=== PATIENT | female | born 1955 | race Caucasian/White ===

== ENCOUNTER 2018-10-13 16:26 | Inpatient (IN) ==
--- NOTE | 2018-10-13 16:56 | Emergency Department Note ---
Disposition Clinical Impression: Low hemoglobin Disposition: Admitted As Inpatient Time of Disposition: 18:21 General Adult HPI - General Chief complaint: ED Recheck/Abnormal Lab/Rx Stated complaint: Needs Blood Transfusion Time Seen by Provider: 10/13/18 16:31 Source: patient Mode of arrival: ambulatory Limitations: no limitations Nursing Notes Reviewed: Yes Vital Signs Reviewed: Yes - History of Present Illness HPI Narrative: Patient is a 63-year-old female presenting with low hemoglobin. Patient has his tory of hypertension, diabetes and hyperlipidemia. Patient states that she has been having generalized fatigue for the past 5 months, progressive worse over the past few weeks, she was seen by her primary care provider today, had blood work performed and was called at home to go to the ER immediately for low hemoglobin. Patient denies fever, chills, melena, hematochezia or hematochezia. Patient states that she has had no other symptoms. She denies any abdominal pain, headache, trauma or fall, she denies history of GI bleed in the past. She denies any history of anemia, cancer or renal disease. Patient denies any history of anemia in the past. She denies chest pain, shortness of breath or leg pain. Patient does state that over the past week or so she has noticed some right lower extremity swelling into her ankle, without redness or pain. Patient denies any history of DVT, PE or blood clots in the past. She denies any recent surgery or malignancy. Pain Scale: 0 - Related Data Allergies Allergy/AdvReac Type Severity Reaction Status Date / Time sulfamethoxazole Allergy Swelling Verified 10/13/18 16:35 [From Bactrim] of Lip/Tongue/Throat trimethoprim [From Bactrim] Allergy Swelling Verified 10/13/18 16:35 of Lip/Tongue/Throat All systems ED: reviewed and negative except as stated. Review of Systems: As Per HPI Constitutional: Denies: fever, chills, weakness, weight change ENT ED: Denies: ear pain, throat pain, dental pain, hearing loss, epistaxis, congestion, dysphagia Cardiovascular: Denies: chest pain, palpitations, dyspnea on exertion, edema, syncope Respiratory: Denies: cough, dyspnea, wheezes, hemoptysis, stridor Gastrointestinal: Denies: abdominal pain, nausea, vomiting, diarrhea, cons tipation, hematemesis, melena, hematochezia Genitourinary: Denies: dysuria, frequency, hematuria, discharge Musculoskeletal: Denies: back pain, neck pain, arthralgia, myalgia Integumentary: Denies: rash, abrasion, lesions Neurological: Denies: headache, weakness, numbness, paresthesias, confusion, a bnormal gait, vertigo Psychiatric: Denies: anxiety, depression, suicidal thoughts, homicidal thoughts, auditory hallucinations, visual hallucinations Endocrine: Reports: fatigue Hematological/Lymphatic: Denies: easy bleeding, easy bruising Past Medical History - Past Medical History Attestation: Yes The following information was validated with the patient. Source: patient Medical history: Reports: diabetes, GERD, hypertension, thyroid disease Psychiatric history: Reports: no psych history - Social History Smoking Status: Never smoker Smokeless Tobacco Status: No Alcohol use: Reports: none Drug use: Reports: none Physical Exam - General Limitations: no limitations General appearance: alert, in no apparent distress - Head Head exam: atraumatic, normocephalic, normal inspection - Eye Eye exam: Present: normal appearance, PERRL, EOMI, other (Mild conjunctival pallor) - ENT ENT exam: normal exam, mucous membranes moist - Neck Neck exam: Present: normal inspection, full ROM, trachea midline - Chest Chest inspection: Present: normal inspection, symmetric chest wall rise - Respiratory Respiratory exam: Present: normal lung sounds bilaterally - Cardiovascular Cardiovascular exam: Present: regular rate, normal rhythm, normal heart sounds - Abdominal Exam Abdominal exam: Present: soft, Non-Tender. Absent: tenderness, distention, guarding, rebound, rigidity - Extremities Exam Extremities exam: Present: normal inspection, full ROM, normal capillary refill. Absent: tenderness, pedal edema - Expanded Lower Extremity Exam Neurovascular/Tendon exam: Absent: motor deficit, sensory deficit, tendon deficit - Back Exam Back exam: Present: normal inspection, full ROM. Absent: tenderness - Neurological Exam Neurological exam: Present: alert, oriented X3, CN II-XII intact - Psychiatric Psychiatric exam: Present: normal affect, normal mood - Skin Skin exam: Present: warm, dry, intact, normal color. Absent: rash Course Vital Signs Temperature 98.1 F 10/13/18 16:29 Pulse Rate 83 10/13/18 16:29 Respiratory Rate 14 10/13/18 16:29 Blood Pressure 158/84 10/13/18 16:29 O2 Sat by Pulse Oximetry 98 10/13/18 16:29 Temperature 99.3 F 10/13/18 18:27 Pulse Rate 84 10/13/18 18:27 Respiratory Rate 16 10/13/18 17:48 Blood Pressure 136/63 10/13/18 18:27 O2 Sat by Pulse Oximetry 98 10/13/18 18:27 Oxygen Delivery Oxygen Delivery Room Air Medical Decision Making - MDM Narrative Medical decision making narrative: Patient is a 63-year-old female presenting with low hemoglobin. Patient states that she has had fatigue over the past 5 months which is purposely worse. She was seen by her primary care provider earlier today, was called to the ER due to low hemoglobin. In the PCP office today. Hemoglobin was noted to be 6.2. On arrival, patient is in no acute distress, she has slight pallor however per family this looks about appropriate to be patient's baseline. Otherwise exam is unremarkable. CBC does reveal anemia with a hemoglobin of 5.9. Patient had a type and screen, patient was ordered 3 units of PRBCs while in the ER. Patient is currently stable and states she has no distress. Hemoccult for the stool was negative. No active bleed, no hematochezia, no melena, no hematemesis or hematuria. BMP, urinalysis are all ordered. Patient this point in time is in no acute distress. Given this new found anemia, with no history, patient will b e admitted for further evaluation as well as workup and continued evaluation. - Medical Records Medical records reviewed: Yes I reviewed the patient's medical records. - Lab Data Lab results reviewed: Yes I reviewed the patient's lab results. Result diagrams: 10/13/18 16:56 10/13/18 16:56 Lab Results 10/13/18 10/13/18 10/13/18 Range/Units 16:56 16:56 16:56 WBC 9.4 (4.3-11.1) K/mcL RBC 3.61 L (3.82-4.97) M/mcL Hgb 5.9 L* (11.5-15.4) g/dL Hct 22.8 L (35.3-44.9) % MCV 63.2 L (83.0-100.0) fL MCH 16.3 L (28.0-33.3) pg MCHC 25.9 L (31.6-35.5) g/dL RDW 20.1 H (11.5-14.5) % Plt Count 400 (140-400) K/mcL MPV 9.8 (9.4-12.4) fL Immature Gran % 0.2 (0-4) % Seg Neutrophils % 47.3 % Lymphocytes % 40.2 % Monocytes % 10.0 % Eosinophils % 1.4 % Basophils % 0.9 % Neutrophils # 4.5 (1.6-8.9) K/mcL Lymphocytes # 3.8 (0.6-4.6) K/mcL Monocytes # 0.9 (0.0-1.3) K/mcL Eosinophils # 0.1 (0.0-0.6) K/mcL Basophils # 0.1 (0.0-0.2) K/mcL Nucleated RBCs/100 WBC 0.2 H (0) /100 WBC Platelet Estimate Slight increase H (Normal) Hypochromasia Present A (Not Present) Anisocytosis 1+ A (Not Present) Microcytosis Present A (Not Present) PT (9.4-12.1) Seconds INR APTT (26.0-36.0) Seconds Sodium 139 (136-145) mEq/L Potassium 3.5 (3.5-5.1) mEq/L Chloride 104 (98-107) mEq/L Carbon Dioxide 27 (23-29) mEq/L BUN 13 (8-23) mg/dL Creatinine 0.73 (0.60-1.20) mg/dL Est GFR ( Amer) > 60 (> 60) Est GFR (Non-Af Amer) > 60 (> 60) BUN/Creatinine Ratio 18 (6-26) Glucose 144 H (70-105) mg/dL Calculated Osmolality 291 (280-300) Calcium 9.6 (8.6-10.3) mg/dL Iron 12 L (50-170) mcg/dL % Saturation 2 L (15-50) % Transferrin 448 H (203-362) mg/dL TSH 2.999 (0.340-5.600) mcIU/mL Stool Occult Bld Scrn (Negative) Blood Type A POSITIVE Antibody Screen NEGATIVE Crossmatch See Detail 10/13/18 10/13/18 Range/Units 16:56 17:15 WBC (4.3-11.1) K/mcL RBC (3.82-4.97) M/mcL Hgb (11.5-15.4) g/dL Hct (35.3-44.9) % MCV (83.0-100.0) fL MCH (28.0-33.3) pg MCHC (31.6-35.5) g/dL RDW (11.5-14.5) % Plt Count (140-400) K/mcL MPV (9.4-12.4) fL Immature Gran % (0-4) % Seg Neutrophils % % Lymphocytes % % Monocytes % % Eosinophils % % Basophils % % Neutrophils # (1.6-8.9) K/mcL Lymphocytes # (0.6-4.6) K/mcL Monocytes # (0.0-1.3) K/mcL Eosinophils # (0.0-0.6) K/mcL Basophils # (0.0-0.2) K/mcL Nucleated RBCs/100 WBC (0) /100 WBC Platelet Estimate (Normal) Hypochromasia (Not Present) Anisocytosis (Not Present) Microcytosis (Not Present) PT 10.8 (9.4-12.1) Seconds INR 1.0 APTT 34.0 (26.0-36.0) Seconds Sodium (136-145) mEq/L Potassium (3.5-5.1) mEq/L Chloride (98-107) mEq/L Carbon Dioxide (23-29) mEq/L BUN (8-23) mg/dL Creatinine (0.60-1.20) mg/dL Est GFR ( Amer) (> 60) Est GFR (Non-Af Amer) (> 60) BUN/Creatinine Ratio (6-26) Glucose (70-105) mg/dL Calculated Osmolality (280-300) Calcium (8.6-10.3) mg/dL Iron (50-170) mcg/dL % Saturation (15-50) % Transferrin (203-362) mg/dL TSH (0.340-5.600) mcIU/mL Stool Occult Bld Scrn Negative (Negative) Blood Type Antibody Screen Crossmatch S.B.A.R. - S.B.A.R. Situation: Demographics, MOA Background: Presenting Complaint, Relevant PMH, Meds, & Allergies Assessment: Vital Signs, Course and respsone to treatment, Exam Concerns, Patient/Family Expectation, Pertinant Lab Results, Outstanding Labs Recommendation: Barrier(s) to disposition, Recommendation based on pending studies, treatments, or consults Kev Report Given to: Dr. Kwesi Angulo Repor Time: 18:46 (accepted) Attestation Statement - Attestation Attestation: I, Aj Bliss, examined this patient and my medical decision-making was reviewed with the PAROLE OFFICER/PA/Advanced Practice Nurse/Resident Physician. I agree with the documented findings, disposition and treatment plan as described except to the extent set forth below. 63-year-old female presents emergency department for further evaluation of anemia. Patient states she has been increasingly weak and fatigued and having chest pain and shortness breath with exertion over the past few months. Patient states she had a gradual decline and then became ill with an upper respiratory illness and never quite return to her baseline. Patient had laboratory testing performed today which showed severe anemia. Repeat hemoglobin today is less than 6. Patient denies hematochezia, melena, recent trauma. No changes in her medications. Denies anticoagulant use. There was for laboratory evaluation did not show significant amount abnormality other than microcytic anemia with decreased MCV with increased are DW. Orders were placed for blood transfusion from the emergency department. Patient will be admitted to the hospital for further care and evaluation.
[2018-10-13 17:33] LABS: Eosinophils % 1.4 %; Mean Platelet Volume 9.8 fL (9.4-12.4)
[2018-10-13 17:34] LABS: Basophils # 0.1 K/mcL (0.0-0.2); Basophils % 0.9 %; Eosinophils # 0.1 K/mcL (0.0-0.6); Hematocrit 22.8 % (35.3-44.9); Immature Granulocytes % 0.2 % (0-4); Lymphocytes # 3.8 K/mcL (0.6-4.6); Lymphocytes % 40.2 %; Mean Corpuscular HGB Conc 25.9 g/dL (31.6-35.5); Mean Corpuscular Hemoglobin 16.3 pg (28.0-33.3); Mean Corpuscular Volume 63.2 fL (83.0-100.0); Monocytes # 0.9 K/mcL (0.0-1.3); Nucleated Red Blood Cells 0.2 /100 WBC (0); Platelet Count 400 K/mcL (140-400); Red Blood Count 3.61 M/mcL (3.82-4.97); Red Cell Distribution Width 20.1 % (11.5-14.5); Segmented Neutrophils % 47.3 %
[2018-10-13 17:39] LABS: Neutrophils # 4.5 K/mcL (1.6-8.9)
[2018-10-13 17:41] LABS: Prothrombin Time 10.8 Seconds (9.4-12.1)
[2018-10-13 17:42] LABS: Anisocytosis 1+ (Not Present); Hemoglobin 5.9 g/dL (11.5-15.4); Hypochromasia Present (Not Present); Microcytosis Present (Not Present)
[2018-10-13 17:51] LABS: % Iron Saturation 2 % (15-50); BUN/Creatinine Ratio 18 (6-26); Blood Urea Nitrogen 13 mg/dL (8-23); Calcium 9.6 mg/dL (8.6-10.3); Carbon Dioxide 27 mEq/L (23-29); Chloride 104 mEq/L (98-107); Glucose 144 mg/dL (70-105); Iron 12 mcg/dL (50-170); Osmolality,Calculated 291 (280-300); Potassium 3.5 mEq/L (3.5-5.1); Sodium 139 mEq/L (136-145); Transferrin 448 mg/dL (203-362); eGFR For Non-African Americans > 60 (> 60)
[2018-10-13 18:04] LABS: Thyroid Stimulating Hormone 2.999 mcIU/mL (0.340-5.600)
[2018-10-13] MEDS ORDERED: Naloxone 0.4 MG/ML INJ IVP PRN (19:22)
--- NOTE | 2018-10-13 19:31 | Internal Med History&Physical ---
Date of Encounter: 10/14/18 Time of Encounter: 19:31 Internal Medicine - H&P: HPI Chief complaint: Fatigue History of present illness: Ms. Louis is a 63 year old female with a past medical history of hypertension, diabetes, GERD, hypothyroidism and hyperlipidemia who presents with a chief complaint of generalized fatigue. Patient states that she has been having generalized fatigue since last June. She states that she starting noting these symptoms after recovering from a flulike illness. She reports symptoms have gotten progressively worse over the past few weeks noting increased dyspnea on exertion during her daily 30 minute walks. She went to see her primary care physician earlier today at which time blood work was performed, results revealing a low hemoglobin and was subsequently referred to the ER by her PCP. Patient also has noted right-sided ankle swelling which is relatively new. She is to have outpatient workup in mid October with a echocardiogram and stress test arranged by her PCP. Patient denies any history of heart disease or blood clots. Patient denies any fever, chills, night sweats, melena, hematochezia, vaginal bleed, hematuria, nausea, vomiting, abdominal pain, unintentional weight loss or diarrhea. Patient states she had a colonoscopy in the past which was normal. Past Med Surg Social Fam HX - Past Medical History Medical history: diabetes, GERD, hypertension, thyroid disease Psychiatric history: no psych history - Past Surgical History Additional surgical history: R shoulder - Social History Smoking Status: Never smoker Smokeless Tobacco Status: No Alcohol use: none Drug use: none - Additional Family History Additional family history: Noncontributory Internal Medicine - H&P: Meds Aspirin [Adult Aspirin] 81 mg PO DAILY 10/13/18 [History] Furosemide [Lasix] 20 mg PO DAILY PRN 10/13/18 [History] Levothyroxine [Synthroid] 75 mcg PO DAILY 10/13/18 [History] Lisinopril [Zestril] 10 mg PO DAILY 10/13/18 [History] Metformin HCl [Glucophage] 1,000 mg PO BID 10/13/18 [History] Koloa-3/Dha/Epa/Fish Oil [Koloa 3 500 Softgel] 1 cap PO DAILY 10/13/18 [History] Omeprazole Magnesium [Prilosec Otc] 20 mg PO DAILY 10/13/18 [History] Simvastatin [Zocor] 40 mg PO QPM 10/13/18 [History] Allergy/AdvReac Type Severity Reaction Status Date / Time sulfamethoxazole Allergy Swelling Verified 10/13/18 16:35 [From Bactrim] of Lip/Tongue/Throat trimethoprim [From Bactrim] Allergy Swelling Verified 10/13/18 16:35 of Lip/Tongue/Throat All Systems PM: A 10-system review of systems was performed and is negative for pertinent findings except as documented above in the HPI. - Constitutional Constitutional: no chills, no fever(s), no night sweats - EENT Eyes: no change in vision, no discharge, no pain, no photophobia Ears: no ear discharge, no ear pain, no tinnitus Nose, mouth and throat: no dysphagia, no nasal discharge, no neck pain, no sore throat - Cardiovascular Cardiovascular ROS IM: no chest pain, no diaphoresis, no dyspnea, no lightheadedness, no palpitations, no syncope - Respiratory Respiratory: no cough, no dyspnea, no wheezing, no excessive phlegm production - Gastrointestinal Gastrointestinal: no abdominal pain, no diarrhea, no hematemesis, no hematochezia, no melena, no nausea, no vomiting - Genitourinary Genitourinary: no change in urinary stream, no dysuria, no flank pain, no hematuria - Musculoskeletal Musculoskeletal ROS IM: no numbness, no tingling - Integumentary Integumentary IM: no rash, no unusual bruising - Neurological Neurological ROS: no confusion, no convulsions, no focal weakness, no numbness, no tingling, no tremor(s) - Hematologic/Lymphatic Hematologic/Lymphatic: no easy bruising - Constitutional Vitals: Temp Pulse Resp BP Pulse Ox 98.4 F 80 18 143/85 95 10/13/18 19:00 10/13/18 19:00 10/13/18 19:02 10/13/18 19:02 10/13/18 19:00 Exam: General: Alert and oriented 3 and he: Lying in bed in no acute distress Skin:Normal color, no rash, no lesions. HEENT:EOM, pupils equal, round and reactive. Cardiovascular:Normal S1 & S2, no rubs, murmurs or gallops. No JVD. Pulse regular. Lungs:Normal breath sounds, no wheezes or crackles. Abdomen:Soft, non-tender, no rigidity. Extremities:No deformity, 1-2+ pitting edema on the right lower extremity up to the midshin. Neurological:Normal cognition and motor skills. Pulses:Carotid and radial pulses normal +2. Rest of the physical exam is non contributory Internal Med - H&P Results - Labs CBC & Chem 7: 10/14/18 17:05 10/14/18 08:09 Labs: Short CBC 10/13/18 Range/Units 16:56 WBC 9.4 (4.3-11.1) K/mcL Hgb 5.9 L* (11.5-15.4) g/dL Hct 22.8 L (35.3-44.9) % Plt Count 400 (140-400) K/mcL Neutrophils # 4.5 (1.6-8.9) K/mcL BMP 10/13/18 16:56 Sodium 139 Potassium 3.5 Chloride 104 Carbon Dioxide 27 BUN 13 Creatinine 0.73 Glucose 144 H Calcium 9.6 - Assessment and plan (1) Low hemoglobin Current Visit: Yes Status: Acute Assessment and plan: Patient presents with generalized fatigue over the past 5 months found to have a hemoglobin of 6.1 reported by her PCP. Repeat hemoglobin on arrival was 5.9. Lab work consistent with a microcytic anemia secondary to iron deficiency. No source of bleed as of now. Patient does not have a history of GERD on PPI, however, denies any epigastric pain or chronic NSAID use. BUN is not elevated. Guaiac stool negative. -Continue with packed red blood cells 3 -Stool occult testing -We will start on daily Protonix IV push given her history of GERD -We will repeat hemoglobin at midnight -Monitor for any reaction to blood products. -We will consider GI workup in the morning. (2) Iron deficiency anemia Current Visit: Yes Status: Suspected Assessment and plan: Iron studies consistent with iron deficiency anemia in the setting of a MCV of 63. Patient states that she had normal blood counts previously. No reported melena or hematochezia. No reports of hematuria or vaginal bleed. No reports of weight loss, fever, chills, night sweats. We will obtain reticulocyte count. Qualifiers: Iron deficiency anemia type: chronic blood loss Qualified Code(s): D50.0 - Iron deficiency anemia secondary to blood loss (chronic) (3) Edema of right lower extremity Current Visit: Yes Status: Acute Assessment and plan: Patient reports swelling of her right ankle which has been ongoing for the past several weeks. No history of heart disease or blood clots Noted to have 1+ pitting edema up to the midshin on physical examination. No evidence of warmth or erythema. Patient reports she has an appointment for outpatient workup with an echo and stress test in mid October. During current presentation we will move forward with further workup. -We will obtain a echocardiogram and lower extremity ultrasound. (4) Hypertension Current Visit: No Status: Chronic Qualifiers: Hypertension type: essential hypertension Qualified Code(s): I10 - Essential (primary) hypertension (5) Hyperlipidemia Current Visit: No Status: Chronic Assessment and plan: Continue with home statin Qualifiers: Hyperlipidemia type: mixed hyperlipidemia Qualified Code(s): E78.2 - Mixed hyperlipidemia (6) Hypothyroidism Current Visit: No Status: Chronic Assessment and plan: TSH within normal limits. New with home levothyroxine treatment Qualifiers: Hypothyroidism type: acquired Qualified Code(s): E03.9 - Hypothyroidism, unspecified (7) Diabetes Current Visit: No Status: Chronic Assessment and plan: Diabetic diet. Sliding scale insulin. Accu-Cheks Qualifiers: Diabetes mellitus type: type 2 Diabetes mellitus intermediate insulin use: without keno terminal operator use Diabetes mellitus complication status: without complication Qualified Code(s): E11.9 - Type 2 diabetes mellitus without complications - Time Spent With Patient Total time spent is greater than 50% in coordination of care (as documented) at patient's floor/unit and/or counseling patient:
[2018-10-13] MEDS ORDERED: *HR* Dextrose 50 % in Water (Syg) 50 ML SYRINGE IVP PRN (20:10)
[2018-10-13] MEDS ORDERED: Dextrose Gel 15 GM/37.5 ML TUBE PO PRN ×2 (20:10)
[2018-10-13] MEDS ORDERED: D5% in Water 1,000 ML IVC PRN (20:10)
[2018-10-13 20:22] LABS: Immature Reticulocyte % 46.8 % (11.0-38.0); Retculocyte # 0.05 M/mcL (0.05-0.10); Reticulocyte % 1.3 % (1.6-2.8)
[2018-10-13 20:46] LABS: Ferritin < 8 ng/mL (10-120)
[2018-10-13] MEDS: Insulin LISPRO 300 UNITS/3 ML VIAL SQ SCH (21:57)
[2018-10-13] MEDS ORDERED: 0.9 % Sodium Chloride 1,000 ML ONE (23:29)
[2018-10-13] MEDS: Pantoprazole 40 MG VIAL IVP SCH (23:48)
[2018-10-14] MEDS ORDERED: 0.9 % Sodium Chloride 1,000 ML ONE (03:30)
[2018-10-14] MEDS: Pantoprazole 40 MG VIAL IVP SCH (06:16)
[2018-10-14 08:44] LABS: Hematocrit 33.6 % (35.3-44.9); Mean Corpuscular HGB Conc 29.2 g/dL (31.6-35.5); Mean Corpuscular Hemoglobin 20.2 pg (28.0-33.3); Mean Platelet Volume 9.4 fL (9.4-12.4); Nucleated Red Blood Cells 0.5 /100 WBC (0); Platelet Count 345 K/mcL (140-400); Red Blood Count 4.85 M/mcL (3.82-4.97); Red Cell Distribution Width 25.2 % (11.5-14.5)
[2018-10-14 08:50] LABS: Hemoglobin 9.8 g/dL (11.5-15.4); Mean Corpuscular Volume 69.3 fL (83.0-100.0)
[2018-10-14 08:51] LABS: Prothrombin Time 11.1 Seconds (9.4-12.1)
[2018-10-14 08:54] LABS: Activated Partial Thrombo Time 31.1 Seconds (26.0-36.0)
[2018-10-14 09:04] LABS: Alanine Aminotransferase 14 Units/L (7-52); Albumin 4.4 g/dL (3.5-5.7); Albumin/Globulin Ratio 1.8 (1.1-2.2); Alkaline Phosphatase 49 Units/L (34-104); Aspartate Amino Transferase 15 Units/L (13-39); BUN/Creatinine Ratio 17 (6-26); Bilirubin,Direct 0.4 mg/dL (0.0-0.2); Bilirubin,Indirect 1.9 mg/dL (0.0-1.2); Bilirubin,Total 2.3 mg/dL (0.3-1.0); Blood Urea Nitrogen 11 mg/dL (8-23); Calcium 9.7 mg/dL (8.6-10.3); Carbon Dioxide 25 mEq/L (23-29); Chloride 107 mEq/L (98-107); Glucose 137 mg/dL (70-105); Osmolality,Calculated 296 (280-300); Potassium 3.9 mEq/L (3.5-5.1); Sodium 142 mEq/L (136-145); Total Protein 6.9 g/dL (6.4-8.9); eGFR For Non-African Americans > 60 (> 60)
[2018-10-14 09:05] LABS: Globulin 2.5 g/dL (2.4-3.5); Lactate Dehydrogenase 161 Units/L (140-271)
[2018-10-14] MEDS: Insulin LISPRO 300 UNITS/3 ML VIAL SQ SCH ×3 (09:06→16:37)
--- NOTE | 2018-10-14 09:26 | Internal Med Progress Note ---
<Deepak Cisneros S - Last Filed: 10/14/18 09:24> Hospitalist Progress Note - Encounter Date of Encounter: 10/14/18 Time of Encounter: 08:30 - Subjective Interval History: Ms. Louis is a 63yo F w/ a PMHx of HTN, DM on Metformin, GERD, hypothyroidism and hyperlipidemia who presents with a CC of generalized fatigue. Patient states that she has been having generalized fatigue since last June. She states that she starting noting these s/s after recovering from a flulike illness. She reports s/s have gotten progressively worse over the past few weeks noting increased SOB on exertion during her daily 30 minute walks. She went to see her primary care physician earlier yesterday at which time blood work was performed, results revealing a low hemoglobin and was subsequently referred to the ER by her PCP. Patient also has noted R ankle swelling which started a week ago. She admits to varicose veins in the L thigh, which hasn't bothered her for years. She was given Lasix by her PCP on Friday and only took 1 dose so far. She is to have outpatient workup in mid October with a echocardiogram and stress test arranged by her PCP. Patient denies any history of heart disease or blood clots. Patient denies any fever, chills, night sweats, post-prandial abdominal pain, hx of PUD, melena, hematochezia, vaginal bleed, hematuria, nausea, vomiting, unintentional weight loss or diarrhea. Patient states she had a colonoscopy 9 years ago, and it was normal. She states she is due for her next colonoscopy 09/02. She is a never smoker and does not drink alcohol. - Exam Vitals: Temp Pulse Resp BP Pulse Ox 98.4 F 76 16 123/66 98 10/14/18 06:21 10/14/18 06:21 10/14/18 06:21 10/14/18 06:21 10/14/18 02:30 Exam: General: A&Ox3, lying in bed comfortably. Eyes: Conjunctiva pale b/l Mouth: no oral lesions, cuts or abrasions noted Cardio:RRR, no murmurs, rubs or gallops Resp: CTAB, no wheezes or crackles GI: Non-tender to palpation + bowel sounds present in all 4 quadrants. Non- distended Extremities: Mild (+1) pitting edema noted around the R ankle. B/l shins no edema noted. L ankle no swelling noted. Skin: no rashes or erythema noted - Assessment and Plan (1) Low hemoglobin Current Visit: Yes Status: Acute Assessment and Plan: Etiology: COY, hemolytic anemia, colon cancer, PUD, GI bleed -PCP found Hgb value of 6.1. -Upon admission the value was 5.9 -Denies epigastric or post-prandial relief or pain -Denies chronic NSAID use -BUN not elevated -Iron studies reveal COY, w/ low iron at 12, transferrin at 448 and ferritin at <8 -Total bilirubin was elevated at 2.3 and indirect at 1.9 -Reticulocyte is low, inappropriate response possible bone marrow suppression -Guaiac stool negative -Transfused pRBC 3U, last unit was given at 345am, repeat Hbh this morning was 9.8. -Patient responded quite well to the transfusion -considering the patient reported s/s after viral illness, IgG or IgM can be ordered to look at possible hemolytic anemia in addition to LDH, haptoglobin or javier. -Repeat hgb in the AM -Consult GI for possible EGD/Colonoscopy -Patient is currently NPO -Transfuse another unit if patient becomes symptomatic or if hgb levels drop below 7 (2) Iron deficiency anemia Current Visit: Yes Status: Acute Assessment and Plan: See above (3) Edema of right lower extremity Current Visit: Yes Status: Acute Assessment and Plan: Etiology: Venous insufficiency, CHF -Patient denies having any hx of CAD or CHF -swelling isolated to the ankles -Echo results to be read by drama teacher -Venous Doppler study did not show any venous insufficiency -Appropriate to continue home dose of Lasix (4) Hypertension Current Visit: No Status: Chronic Assessment and Plan: Per hx -She is currently normotensive -Continue home lisinopril 10mg if she becomes hypertensive (5) Diabetes Current Visit: No Status: Chronic Assessment and Plan: Per hx -Takes 1000mg BID metformin at home -Currently hold home med -Sliding scale insulin (6) Hyperlipidemia Current Visit: No Status: Chronic Assessment and Plan: Per hx -She takes Simvastatin 40mg at home -continue home meds (7) Hypothyroidism Current Visit: No Status: Chronic Assessment and Plan: Per hx -Patient takes 75mcg of synthroid at home -continue home meds - Time Spent with Patient Total time spent is greater than 50% in coordination of care (as documented) at patient's floor/unit and/or counseling patient: Greater than 35 minutes Plan of Care Discussed with: patient Internal Medicine: Result - Labs CBC & Chem 7: 10/14/18 08:09 10/14/18 08:09 Labs: Short CBC 10/13/18 10/14/18 Range/Units 16:56 08:09 WBC 9.4 8.2 (4.3-11.1) K/mcL Hgb 5.9 L* 9.8 L D (11.5-15.4) g/dL Hct 22.8 L 33.6 L (35.3-44.9) % Plt Count 400 345 (140-400) K/mcL Neutrophils # 4.5 (1.6-8.9) K/mcL BMP 10/13/18 10/14/18 16:56 08:09 Sodium 139 142 Potassium 3.5 3.9 Chloride 104 107 Carbon Dioxide 27 25 BUN 13 11 Creatinine 0.73 0.65 Glucose 144 H 137 H Calcium 9.6 9.7 Liver Function 10/14/18 Range/Units 08:09 Total Bilirubin 2.3 H (0.3-1.0) mg/dL Direct Bilirubin 0.4 H (0.0-0.2) mg/dL AST 15 (13-39) Units/L ALT 14 (7-52) Units/L Alkaline Phosphatase 49 (34-104) Units/L Albumin 4.4 (3.5-5.7) g/dL - ABG Interpretation ABG results: PT/INR, D-dimer PT 11.1 Seconds (9.4-12.1) 10/14/18 08:09 Consult Discharge Plan - Plan Referrals: Natividad Harris, STICK ROLLER [Primary Care Provider] - <Angelito Bowens - Last Filed: 10/14/18 15:23> Hospitalist Progress Note - Encounter Date of Encounter: 10/14/18 - Exam Vitals: Temp Pulse Resp BP Pulse Ox 98.2 F 68 15 144/65 97 10/14/18 14:34 10/14/18 14:34 10/14/18 14:34 10/14/18 14:34 10/14/18 14:34 - Assessment and Plan (1) Low hemoglobin Current Visit: Yes Status: Acute (2) Edema of right lower extremity Current Visit: Yes Status: Acute (3) Iron deficiency anemia Current Visit: Yes Status: Suspected (4) Hypertension Current Visit: No Status: Chronic (5) Hyperlipidemia Current Visit: No Status: Chronic (6) Hypothyroidism Current Visit: No Status: Chronic (7) Diabetes Current Visit: No Status: Chronic - Time Spent with Patient Total time spent is greater than 50% in coordination of care (as documented) at patient's floor/unit and/or counseling patient: Internal Medicine: Result - Labs CBC & Chem 7: 10/14/18 08:09 10/14/18 08:09 Labs: Short CBC 10/13/18 10/14/18 Range/Units 16:56 08:09 WBC 9.4 8.2 (4.3-11.1) K/mcL Hgb 5.9 L* 9.8 L D (11.5-15.4) g/dL Hct 22.8 L 33.6 L (35.3-44.9) % Plt Count 400 345 (140-400) K/mcL Neutrophils # 4.5 5.6 (1.6-8.9) K/mcL BMP 10/13/18 10/14/18 16:56 08:09 Sodium 139 142 Potassium 3.5 3.9 Chloride 104 107 Carbon Dioxide 27 25 BUN 13 11 Creatinine 0.73 0.65 Glucose 144 H 137 H Calcium 9.6 9.7 Liver Function 10/14/18 Range/Units 08:09 Total Bilirubin 2.3 H (0.3-1.0) mg/dL Direct Bilirubin 0.4 H (0.0-0.2) mg/dL AST 15 (13-39) Units/L ALT 14 (7-52) Units/L Alkaline Phosphatase 49 (34-104) Units/L Albumin 4.4 (3.5-5.7) g/dL - ABG Interpretation ABG results: PT/INR, D-dimer PT 11.1 Seconds (9.4-12.1) 10/14/18 08:09 - Impressions Impressions Echocardiogram 10/13/18 20:41 Impressions: LVEF 60-65%. Normal LV chamber size, wall thickness and function. Mild left ventricular diastolic dysfunction. Normal right ventricular structure and function. Mild mitral regurgitation. No evidence of pulmonary hypertension. Left Ventricular Wall Motion: Rest Echo Findings All wall segments showed normal motion. Findings: Study Quality * Technically adequate exam. ECG Findings * Normal sinus rhythm. Left Ventricle * LVEF 60-65%. * Normal LV chamber size, wall thickness and function. * Mild left ventricular diastolic dysfunction. Right Ventricle * Normal right ventricular structure and function. Left Atrium * Mild to moderately dilated left atrium. Right Atrium * Normal right atrial size. Aortic Valve * Trileaflet aortic valve with normal function. * No aortic regurgitation. * No aortic stenosis. Mitral Valve * Normal mitral valve structure. * Mild mitral regurgitation. * No mitral stenosis. Tricuspid Valve * Normal tricuspid valve structure and function. * Trace tricuspid regurgitation. * No evidence of pulmonary hypertension. Pulmonic Valve * Normal pulmonic valve structure and function. * No pulmonic regurgitation. Aorta * Normally sized aortic root. Pericardium * The pericardium appears normal. IVC * Normal IVC dimensions and inspiratory collapse. Pulmonary Artery * Normal visualized portions of the main pulmonary artery. - Attending Attestation I examined this patient and my medical decision-making was reviewed with the Resident Physician on 10/14/18. I agree with the documented findings, disposition and treatment plan as described except to the extent set forth below. Ms Louis is currently admitted for anemia which is severe and symptomatic. She remains moderate to high risk due to potential for worsening clinical status. Ms Louis is resting. No fever or chills. Has received 3 units blood with improvement. No CP or SOB. Still has some edema of her ankle area. No overt bleeding noted. Has not noticed any dark stools or other issues. Exam alert Comfortable in bed Mucus membranes dry Heart not tachy No wheeze Abd nontender Moves all extremities No rash I/P 1. Anemia - most likely due to chronic blood loss. Iron deficient. To have EGD and colonoscopy tomorrow. 2. Edema - echo pending 3. DM - controlled at this time 4. HTN - controlled at this time 5. HLD - on home meds 6. Hypothyroid - TSH normal. Further diagnoses and plan as above. <Shirley Cisneroseep S - Last Filed: 10/14/18 09:24> (5) Diabetes Qualifiers: Diabetes mellitus type: type 2 Diabetes mellitus snf insulin use: without etl application developer use Diabetes mellitus complication status: without complication Qualified Code(s): E11.9 - Type 2 diabetes mellitus without complications <Angelito Bowens A - Last Filed: 10/14/18 15:23> (3) Iron deficiency anemia Qualifiers: Iron deficiency anemia type: chronic blood loss Qualified Code(s): D50.0 - Iron deficiency anemia secondary to blood loss (chronic) (4) Hypertension Qualifiers: Hypertension type: essential hypertension Qualified Code(s): I10 - Essential (primary) hypertension (5) Hyperlipidemia Qualifiers: Hyperlipidemia type: mixed hyperlipidemia Qualified Code(s): E78.2 - Mixed hyperlipidemia (6) Hypothyroidism Qualifiers: Hypothyroidism type: acquired Qualified Code(s): E03.9 - Hypothyroidism, unspecified (7) Diabetes Qualifiers: Diabetes mellitus type: type 2 Diabetes mellitus snf insulin use: without snf use Diabetes mellitus complication status: without complication Qualified Code(s): E11.9 - Type 2 diabetes mellitus without complications
[2018-10-14 10:25] LABS: Basophils # 0.2 K/mcL (0.0-0.2); Monocytes # 0.5 K/mcL (0.0-1.3); Neutrophils # 5.6 K/mcL (1.6-8.9)
[2018-10-14 10:26] LABS: Hypochromasia Present (Not Present); Microcytosis Present (Not Present); Platelet Estimate Normal (Normal); Reactive Lymphocytes Present (Not Present)
[2018-10-14 10:27] LABS: Poikilocytosis 1+ (Not Present); Polychromasia 1+ (Not Present)
--- NOTE | 2018-10-14 11:08 | Gastroenterology Consult Note ---
<Westley Logan S - Last Filed: 10/14/18 10:56> Date of Encounter: 10/14/18 Time of Encounter: 10:00 - Assessment and plan (1) Iron deficiency anemia Current Visit: Yes Status: Acute Assessment and plan: Patient with Hgb of 5.9 on admission, now 9.8 after 3 units of PRBCs MCV 63 > 69 today Iron 12, % sat 2, transferrin 448, ferritin <8 Patient likely has iron deficiency anemia with possible blood loss Will bowel prep patient today Plan for EGD and Colonoscopy tomorrow Also ordered tissue transglutaminase IgA to check for celiac disease Qualifiers: Iron deficiency anemia type: unspecified iron deficiency Qualified Code(s): D50.9 - Iron deficiency anemia, unspecified - Time Spent With Patient Total time spent is greater than 50% in coordination of care (as documented) at patient's floor/unit and/or counseling patient: GI History of Present Illness - Data of Consult Consult date: 10/14/18 Requesting Physician: Angelito Bowens, - Consult Narrative Reason for consult: Low Hgb, fatigue for past 4 months History of present illness: Ms. Louis is a 63 year old female with PMHx of HTN, HLD, GERD, hypothyroidism, and DM presents to [place] on 10/13 for fatigue and low Hgb. GI was consulted for possible upper and lower scope for low Hgb. Patient saw her PCP on 10/13 for fatigue and was found to be anemic with Hgb of 6.2, she was then sent to [place] ED. Initial labs were significant for Hgb 5.9, MCV 63.2, % retic 1.3, iron 12, % sat 2, transferrin 448, ferritin <8, PT 11.1, INR, 1.0, T bili 2.3. Negative stool occult blood. Patient was transfused with 3 units of PRBCs. Patient seen and examined today. She states she had a viral illness in June 2018 and has felt fatigued ever since. She denies abdominal pain, nausea, vomiting, melena, changes in bowel habits, fevers/chills, CP, SOB, numbness/tingling, recent weight loss, night sweats. Patient denies history of GI bleed, low Hgb, blood transfusions, needing hospitalization after viral illne sses as a child. She denies ever having an EGD. She reports her last colonoscopy was [address] Collier, which was normal, and she is due for another in August this year. She denies history of smoking, alcohol, and drug use. She denies personal history of cancer. Her father had cancer of his lumbar spine, but she was unsure if it was primary. Past Med Surg Social Fam HX - Past Medical History Medical history: diabetes, GERD, hypertension, thyroid disease Psychiatric history: no psych history - Past Surgical History Additional surgical history: R shoulder - Social History Smoking Status: Never smoker Smokeless Tobacco Status: No Alcohol use: none Drug use: none - Constitutional Vitals: Temp Pulse Resp BP Pulse Ox 98.4 F 80 15 130/68 96 10/14/18 10:01 10/14/18 10:01 10/14/18 10:01 10/14/18 10:10/14/18 10:01 General appearance: Present: A&O X 3, no acute distress - ENT ENT exam: Present: mucous membranes moist - Respiratory Respiratory exam: Present: CTAB - Cardiovascular Cardiovascular exam: Present: RRR - GI/Abdominal GI/Abdominal exam: Present: normal bowel sounds, soft, no peritoneal signs. Absent: distended, guarding, tenderness - Neurological Exam Neurological exam: Present: no focal deficits, strengths equal and symetr throughout - Psychiatric Psychiatric exam: Present: normal affect, normal mood - Skin Skin exam: Present: normal color Results - Labs CBC & Chem 7: 10/14/18 08:09 10/14/18 08:09 Labs: Last Result Calcium 9.7 mg/dL (8.6-10.3) 10/14/18 08:09 Iron 12 mcg/dL (50-170) L 10/13/18 16:56 % Saturation 2 % (15-50) L 10/13/18 16:56 Transferrin 448 mg/dL (203-362) H 10/13/18 16:56 Ferritin < 8 ng/mL (10-120) L 10/13/18 16:56 Entire Visit Hgb 9.8 g/dL (11.5-15.4) L D 10/14/18 08:09 Hct 33.6 % (35.3-44.9) L 10/14/18 08:09 PT 11.1 Seconds (9.4-12.1) 10/14/18 08:09 Ferritin < 8 ng/mL (10-120) L 10/13/18 16:56 Total Bilirubin 2.3 mg/dL (0.3-1.0) H 10/14/18 08:09 AST 15 Units/L (13-39) 10/14/18 08:09 ALT 14 Units/L (7-52) 10/14/18 08:09 - ABG ABG results: PT/INR, D-dimer PT 11.1 Seconds (9.4-12.1) 10/14/18 08:09 Consult Discharge Plan - Plan Referrals: Natividad Harris, CABLE TOOL DRILLER [Primary Care Provider] - <Pankaj Macias - Last Filed: 10/14/18 17:18> Date of Encounter: 10/14/18 Time of Encounter: 14:00 - Time Spent With Patient Total time spent is greater than 50% in coordination of care (as documented) at patient's floor/unit and/or counseling patient: GI History of Present Illness - Data of Consult Requesting Physician: Angelito Bowens DO - Consult Narrative History of present illness: Ms. Louis is a 63 year old female - Constitutional Vitals: Temp Pulse Resp BP Pulse Ox 98.4 F 78 18 143/63 78 10/14/18 16:45 10/14/18 16:45 10/14/18 16:45 10/14/18 16:45 10/14/18 16:45 Results - Labs CBC & Chem 7: 10/14/18 08:09 10/14/18 08:09 Labs: Last Result Calcium 9.7 mg/dL (8.6-10.3) 10/14/18 08:09 Iron 12 mcg/dL (50-170) L 10/13/18 16:56 % Saturation 2 % (15-50) L 10/13/18 16:56 Transferrin 448 mg/dL (203-362) H 10/13/18 16:56 Ferritin < 8 ng/mL (10-120) L 10/13/18 16:56 Entire Visit Hgb 9.8 g/dL (11.5-15.4) L D 10/14/18 08:09 Hct 33.6 % (35.3-44.9) L 10/14/18 08:09 PT 11.1 Seconds (9.4-12.1) 10/14/18 08:09 Ferritin < 8 ng/mL (10-120) L 10/13/18 16:56 Total Bilirubin 2.3 mg/dL (0.3-1.0) H 10/14/18 08:09 AST 15 Units/L (13-39) 10/14/18 08:09 ALT 14 Units/L (7-52) 10/14/18 08:09 - ABG ABG results: PT/INR, D-dimer PT 11.1 Seconds (9.4-12.1) 10/14/18 08:09 - Impressions Impressions Echocardiogram 10/13/18 20:41 Impressions: LVEF 60-65%. Normal LV chamber size, wall thickness and function. Mild left ventricular diastolic dysfunction. Normal right ventricular structure and function. Mild mitral regurgitation. No evidence of pulmonary hypertension. Left Ventricular Wall Motion: Rest Echo Findings All wall segments showed normal motion. Findings: Study Quality * Technically adequate exam. ECG Findings * Normal sinus rhythm. Left Ventricle * LVEF 60-65%. * Normal LV chamber size, wall thickness and function. * Mild left ventricular diastolic dysfunction. Right Ventricle * Normal right ventricular structure and function. Left Atrium * Mild to moderately dilated left atrium. Right Atrium * Normal right atrial size. Aortic Valve * Trileaflet aortic valve with normal function. * No aortic regurgitation. * No aortic stenosis. Mitral Valve * Normal mitral valve structure. * Mild mitral regurgitation. * No mitral stenosis. Tricuspid Valve * Normal tricuspid valve structure and function. * Trace tricuspid regurgitation. * No evidence of pulmonary hypertension. Pulmonic Valve * Normal pulmonic valve structure and function. * No pulmonic regurgitation. Aorta * Normally sized aortic root. Pericardium * The pericardium appears normal. IVC * Normal IVC dimensions and inspiratory collapse. Pulmonary Artery * Normal visualized portions of the main pulmonary artery. - Attending Attestation I have personally performed a face to face evaluation on this patient. I have reviewed and agree with the care plan. History and Exam by me shows: Patient seen. Denies any overt bleeding. On examination abdomen is benign. Assessment: Patient with severe iron deficiency anemia microcytic. Recommendation: Follow H&H EGD colonoscopy tomorrow to rule out GI causes for her anemia
[2018-10-14 17:18] LABS: Hematocrit 34.1 % (35.3-44.9)
--- NOTE | 2018-10-14 18:32 | Anesthesia Evaluation PreOp ---
Date of Encounter: 10/15/18 Time of Encounter: 18:30 - Past History Planned Operation: EGD and colonoscopy Cardiac History: HTN, Hyperlipidemia Pulmonary History: Denies Any Significant HX COMMUNICATION SPEC History: Denies Any Significant HX Other Medical History: Thyroid (hypo), GERD, Other (anemia) Anesthesia History: No Prior Anesthetic Complications, Past Anesthesia (R shoulder) Alcohol Use: none Drug use: none Medications and Allergies Aspirin [Adult Aspirin] 81 mg PO DAILY 10/13/18 [History] Furosemide [Lasix] 20 mg PO DAILY PRN 10/13/18 [History] Levothyroxine [Synthroid] 75 mcg PO DAILY 10/13/18 [History] Lisinopril [Zestril] 10 mg PO DAILY 10/13/18 [History] Metformin HCl [Glucophage] 1,000 mg PO BID 10/13/18 [History] [place]-3/Dha/Epa/Fish Oil [[place] 3 500 Softgel] 1 cap PO DAILY 10/13/18 [History] Omeprazole Magnesium [Prilosec Otc] 20 mg PO DAILY 10/13/18 [History] Simvastatin [Zocor] 40 mg PO QPM 10/13/18 [History] Allergy/AdvReac Type Severity Reaction Status Date / Time sulfamethoxazole Allergy Swelling Verified 10/13/18 16:35 [From Bactrim] of Lip/Tongue/Throat trimethoprim [From Bactrim] Allergy Swelling Verified 10/13/18 16:35 of Lip/Tongue/Throat - Meds/Allergy Pre-op Review Medications Reviewed: Yes Allergies Reviewed: Yes Beta Blockers on Current Med List: No Anesthesia Results - Labs 10/14/18 17:05 10/14/18 08:09 - Imaging EKG: report reviewed (NSR) Additional studies: ECHO 10/13/18 Impressions: LVEF 60-65%. Normal LV chamber size, wall thickness and function. Mild left ventricular diastolic dysfunction. Normal right ventricular structure and function. Mild mitral regurgitation. No evidence of pulmonary hypertension. Anesthesia Exam Vital Signs/O2 Sat, Most Current Temp Pulse Resp BP Pulse Ox 98.4 F 78 18 143/63 97 10/14/18 16:45 10/14/18 16:45 10/14/18 16:45 10/14/18 16:45 10/14/18 16:45 Weight: 76kg NPO (# of Hours): >8 - COMMUNICATION SPEC LOC: Oriented COMMUNICATION SPEC Motor: Normal RUE, Normal LUE, Normal RLE, Normal LLE, Normal Face COMMUNICATION SPEC Sensory: Normal: RUE, LUE, RLE, LLE, Face - Cardiac Rhythm: Regular - Pulmonary Breath Sounds: bilateral Clear Respiratory Effort: Symmetrical Anesthesia Assess/Plan ASA Score: 3 Level of consciousness: Cooperative Anesthetic Plan: General, MAC Monitoring Plan: Standard Monitors Recovery Plan: PACU
[2018-10-15 04:46] LABS: Hematocrit 36.5 % (35.3-44.9); Hemoglobin 10.7 g/dL (11.5-15.4); Mean Corpuscular HGB Conc 29.3 g/dL (31.6-35.5); Mean Corpuscular Hemoglobin 20.5 pg (28.0-33.3); Mean Corpuscular Volume 69.8 fL (83.0-100.0); Mean Platelet Volume 9.5 fL (9.4-12.4); Platelet Count 374 K/mcL (140-400); Red Blood Count 5.23 M/mcL (3.82-4.97); Red Cell Distribution Width 25.3 % (11.5-14.5)
[2018-10-15 05:05] LABS: BUN/Creatinine Ratio 16 (6-26); Blood Urea Nitrogen 10 mg/dL (8-23); Calcium 9.9 mg/dL (8.6-10.3); Carbon Dioxide 24 mEq/L (23-29); Chloride 109 mEq/L (98-107); Glucose 138 mg/dL (70-105); Osmolality,Calculated 295 (280-300); Potassium 3.6 mEq/L (3.5-5.1); Sodium 142 mEq/L (136-145); eGFR For Non-African Americans > 60 (> 60)
[2018-10-15] MEDS: Pantoprazole 40 MG VIAL IVP SCH (06:41)
--- NOTE | 2018-10-15 07:52 | Internal Med Progress Note ---
<Deepak Cisneros S - Last Filed: 10/15/18 11:12> Hospitalist Progress Note - Encounter Date of Encounter: 10/15/18 Time of Encounter: 08:30 - Subjective Interval History: Ms. Louis is sittin in her bed, in good spirits and doing well. There were no overnight events. She states she is feeling more like her baseline and feels a bit more energetic since the transfusion. She says the R ankle swelling has improved dramatically. Patient is aware of the EGD/Colonoscopy today. She admits to a mild KILLIAN that she thinks is from not having coffee. She denies CP, SOB, abdominal pain, hematochezia, melena, LE edema - Exam Vitals: Temp Pulse Resp BP Pulse Ox 98.3 F 63 16 131/76 97 10/15/18 07:05 10/15/18 07:05 10/15/18 07:05 10/15/18 07:05 10/15/18 07:05 Exam: General: A&Ox3, lying in bed comfortably. Eyes: Conjunctiva pale b/l Mouth: no oral lesions, cuts or abrasions noted Cardio:RRR, no murmurs, rubs or gallops Resp: CTAB, no wheezes or crackles GI: Non-tender to palpation + bowel sounds present in all 4 quadrants. Non-dist ended Extremities: no swelling noted b/l Skin: no rashes or erythema noted - Assessment and Plan (1) Low hemoglobin Current Visit: Yes Status: Acute Assessment and Plan: Etiology: COY, hemolytic anemia, colon cancer, PUD, GI bleed -PCP found Hgb value of 6.1. -Upon admission the value was 5.9 -Transfused pRBC 3U, last unit was given at 345am on 10/14/18, repeat Hgb this morning was 10.7 -Denies epigastric or post-prandial relief or pain -Denies chronic NSAID use -BUN not elevated -Iron studies reveal COY, w/ low iron at 12, transferrin at 448 and ferritin at <8 -Total bilirubin was elevated at 2.3 and indirect at 1.9 -Reticulocyte is low, inappropriate response possible bone marrow suppression -Guaiac stool negative -Patient responded quite well to the transfusion -considering the patient reported s/s after viral illness, IgG or IgM can be ordered to look at possible hemolytic anemia in addition to LDH, haptoglobin or javier. -Repeat hgb in the AM -Scheduled to have EGD/Colonoscopy today afternoon -Patient is currently NPO -Transfuse another unit if patient becomes symptomatic or if hgb levels drop below 7 (2) Iron deficiency anemia Current Visit: Yes Status: Suspected Assessment and Plan: see above (3) Edema of right lower extremity Current Visit: Yes Status: Acute Assessment and Plan: Etiology: Venous insufficiency, CHF -Patient denies having any hx of CAD or CHF -swelling isolated to the ankles -- resolved today on examination -Echo shows EF% of 60-65% -Venous Doppler study did not show any venous insufficiency -Appropriate to continue home dose of Lasix (4) Hypertension Current Visit: No Status: Chronic Assessment and Plan: Per hx -She is currently normotensive -Continue home lisinopril 10mg if she becomes hypertensive (5) Diabetes Current Visit: No Status: Chronic Assessment and Plan: Per hx -Takes 1000mg BID metformin at home -Currently hold home med -Sliding scale insulin (6) Hyperlipidemia Current Visit: No Status: Chronic Assessment and Plan: Per hx -She takes Simvastatin 40mg at home -continue home meds (7) Hypothyroidism Current Visit: No Status: Chronic Assessment and Plan: Per hx -Patient takes 75mcg of synthroid at home -continue home meds - Time Spent with Patient Total time spent is greater than 50% in coordination of care (as documented) at patient's floor/unit and/or counseling patient: 25 - 35 minutes Plan of Care Discussed with: patient Internal Medicine: Result - Labs CBC & Chem 7: 10/15/18 04:22 10/15/18 04:22 Labs: Short CBC 10/14/18 10/14/18 10/15/18 Range/Units 08:09 17:05 04:22 WBC 8.2 9.4 (4.3-11.1) K/mcL Hgb 9.8 L D 10.0 L 10.7 L (11.5-15.4) g/dL Hct 33.6 L 34.1 L 36.5 (35.3-44.9) % Plt Count 345 374 (140-400) K/mcL Neutrophils # 5.6 (1.6-8.9) K/mcL BMP 10/14/18 10/15/18 08:09 04:22 Sodium 142 142 Potassium 3.9 3.6 Chloride 107 109 H Carbon Dioxide 25 24 BUN 11 10 Creatinine 0.65 0.63 Glucose 137 H 138 H Calcium 9.7 9.9 Liver Function 10/14/18 Range/Units 08:09 Total Bilirubin 2.3 H (0.3-1.0) mg/dL Direct Bilirubin 0.4 H (0.0-0.2) mg/dL AST 15 (13-39) Units/L ALT 14 (7-52) Units/L Alkaline Phosphatase 49 (34-104) Units/L Albumin 4.4 (3.5-5.7) g/dL - ABG Interpretation ABG results: PT/INR, D-dimer PT 11.1 Seconds (9.4-12.1) 10/14/18 08:09 - Impressions Impressions Echocardiogram 10/13/18 20:41 Impressions: LVEF 60-65%. Normal LV chamber size, wall thickness and function. Mild left ventricular diastolic dysfunction. Normal right ventricular structure and function. Mild mitral regurgitation. No evidence of pulmonary hypertension. Left Ventricular Wall Motion: Rest Echo Findings All wall segments showed normal motion. Findings: Study Quality * Technically adequate exam. ECG Findings * Normal sinus rhythm. Left Ventricle * LVEF 60-65%. * Normal LV chamber size, wall thickness and function. * Mild left ventricular diastolic dysfunction. Right Ventricle * Normal right ventricular structure and function. Left Atrium * Mild to moderately dilated left atrium. Right Atrium * Normal right atrial size. Aortic Valve * Trileaflet aortic valve with normal function. * No aortic regurgitation. * No aortic stenosis. Mitral Valve * Normal mitral valve structure. * Mild mitral regurgitation. * No mitral stenosis. Tricuspid Valve * Normal tricuspid valve structure and function. * Trace tricuspid regurgitation. * No evidence of pulmonary hypertension. Pulmonic Valve * Normal pulmonic valve structure and function. * No pulmonic regurgitation. Aorta * Normally sized aortic root. Pericardium * The pericardium appears normal. IVC * Normal IVC dimensions and inspiratory collapse. Pulmonary Artery * Normal visualized portions of the main pulmonary artery. Consult Discharge Plan - Plan Referrals: Natividad Harris, [employer] [Primary Care Provider] - <Angelito Bowens - Last Filed: 10/15/18 17:58> Hospitalist Progress Note - Encounter Date of Encounter: 10/15/18 - Exam Vitals: Temp Pulse Resp BP Pulse Ox 98.1 F 76 16 145/69 100 10/15/18 15:33 10/15/18 16:15 10/15/18 16:15 10/15/18 16:15 10/15/18 16:15 - Assessment and Plan (1) Low hemoglobin Current Visit: Yes Status: Acute (2) Edema of right lower extremity Current Visit: Yes Status: Acute (3) Iron deficiency anemia Current Visit: Yes Status: Suspected (4) Hypertension Current Visit: No Status: Chronic (5) Hyperlipidemia Current Visit: No Status: Chronic (6) Hypothyroidism Current Visit: No Status: Chronic (7) Diabetes Current Visit: No Status: Chronic - Time Spent with Patient Total time spent is greater than 50% in coordination of care (as documented) at patient's floor/unit and/or counseling patient: Internal Medicine: Result - Labs CBC & Chem 7: 10/15/18 04:22 10/15/18 04:22 Labs: Short CBC 10/15/18 Range/Units 04:22 WBC 9.4 (4.3-11.1) K/mcL Hgb 10.7 L (11.5-15.4) g/dL Hct 36.5 (35.3-44.9) % Plt Count 374 (140-400) K/mcL BMP 10/15/18 04:22 Sodium 142 Potassium 3.6 Chloride 109 H Carbon Dioxide 24 BUN 10 Creatinine 0.63 Glucose 138 H Calcium 9.9 - ABG Interpretation ABG results: PT/INR, D-dimer PT 11.1 Seconds (9.4-12.1) 10/14/18 08:09 - Attending Attestation The history, physical exam, and medical decision making was performed by the medical student either while I was physically present and actively involved or I personally re-performed the exam and medical decision making. I have verified the accuracy of the medical student's documentation with regards to the history, physical exam findings, and medical decision making on 10/15/18. Ms Louis is currently admitted for anemia and edema. She remains moderate to high risk due to potential for worsening clinical status. Ms Louis is waiting for endoscopy. She feels OK and better since blood transfusion. No fever or chills. No CP or SOB. Exam alert Comfortable Mucus membranes dry Heart reg and not tachy No wheeze abd soft and nontender No edema Pulses palpable Normocephalic No rash I/P 1. Iron def anemia - concern for bleeding. Endoscopy today. 2. DM - controlled at this time. 3. HTN - controlled 4. HLD - on Simvastatin 5. Hypothyroid - on Synthyroid Further diagnoses and plan as above. <Deepak Cisneros S - Last Filed: 10/15/18 11:12> (2) Iron deficiency anemia Qualifiers: Iron deficiency anemia type: chronic blood loss Qualified Code(s): D50.0 - Iron deficiency anemia secondary to blood loss (chronic) (4) Hypertension Qualifiers: Hypertension type: essential hypertension Qualified Code(s): I10 - Essential (primary) hypertension (5) Diabetes Qualifiers: Diabetes mellitus type: type 2 Diabetes mellitus intermediate designer insulin use: without intermediate designer use Diabetes mellitus complication status: without complication Qualified Code(s): E11.9 - Type 2 diabetes mellitus without complications (6) Hyperlipidemia Qualifiers: Hyperlipidemia type: mixed hyperlipidemia Qualified Code(s): E78.2 - Mixed hyperlipidemia (7) Hypothyroidism Qualifiers: Hypothyroidism type: acquired Qualified Code(s): E03.9 - Hypothyroidism, unspecified <Angelito Bowens A - Last Filed: 10/15/18 17:58> (3) Iron deficiency anemia Qualifiers: Iron deficiency anemia type: chronic blood loss Qualified Code(s): D50.0 - Iron deficiency anemia secondary to blood loss (chronic) (4) Hypertension Qualifiers: Hypertension type: essential hypertension Qualified Code(s): I10 - Essential (primary) hypertension (5) Hyperlipidemia Qualifiers: Hyperlipidemia type: mixed hyperlipidemia Qualified Code(s): E78.2 - Mixed hyperlipidemia (6) Hypothyroidism Qualifiers: Hypothyroidism type: acquired Qualified Code(s): E03.9 - Hypothyroidism, unspecified (7) Diabetes Qualifiers: Diabetes mellitus type: type 2 Diabetes mellitus nursing home insulin use: without intermediate designer use Diabetes mellitus complication status: without compl ication Qualified Code(s): E11.9 - Type 2 diabetes mellitus without compli cations
[2018-10-15] MEDS: Insulin LISPRO 300 UNITS/3 ML VIAL SQ SCH ×3 (08:00→18:26)
[2018-10-15] MEDS ORDERED: Furosemide 20 MG TABLET PO PRN (14:21)
[2018-10-15] MEDS ORDERED: *HR* FentaNYL (PF) 100 MCG/2 ML VIAL ONE (15:16)
[2018-10-15] MEDS ORDERED: *HR* Midazolam HCl 5 MG/5 ML VIAL IVP ONE (15:16)
[2018-10-15] MEDS ORDERED: Simethicone 40 MG/0.6 ML MLS IR ONE ×2 (15:35→15:52)
[2018-10-15] MEDS ORDERED: Tetracaine/Benzocaine/Butamben 1 SPRAY AEROSOL MM ONE ×2 (15:35→15:52)
[2018-10-15] MEDS: 0.9 % Sodium Chloride 500 ML IVC SCH ×2 (15:38→22:39)
[2018-10-15] MEDS ORDERED: *HR* FentaNYL (PF) 100 MCG/2 ML VIAL IVP ONE (15:52)
--- NOTE | 2018-10-15 15:52 | History & Physical Report ---
Date of Encounter: 10/15/18 Time of Encounter: 15:00 24 Hour HP Update - Instructions Instructions: If the History and Physical is less than 30 days old and was completed prior to A.M. admission and or procedure and has NOT been updated on calendar day of procedure please complete this update prior to performing procedure. - Update Patient reports changes in Medical Condition: No Changes in examination, assessment, or condition: No Changes in Medication: No Preop tests/diagnostics Reviewed: Yes Surgery Remains Indicated: Yes Consent for Planned Operative Procedure(s) Verified: Yes
[2018-10-15] MEDS: *HR* Midazolam HCl 5 MG/5 ML VIAL IVP ONE ×2 (15:54→15:55)
[2018-10-15] MEDS ORDERED: Insulin LISPRO 300 UNITS/3 ML VIAL SQ SCH (21:30)
[2018-10-15 21:37] LABS: Estimated Average Glucose 143 mg/dl; Hemoglobin A1C 6.6 %
[2018-10-16] MEDS: Pantoprazole 40 MG VIAL IVP SCH (05:34)
[2018-10-16 06:09] LABS: Hematocrit 36.6 % (35.3-44.9); Hemoglobin 10.4 g/dL (11.5-15.4); Mean Corpuscular HGB Conc 28.4 g/dL (31.6-35.5); Mean Corpuscular Hemoglobin 20.2 pg (28.0-33.3); Mean Corpuscular Volume 71.1 fL (83.0-100.0); Mean Platelet Volume 9.2 fL (9.4-12.4); Platelet Count 339 K/mcL (140-400); Red Blood Count 5.15 M/mcL (3.82-4.97); Red Cell Distribution Width 26.6 % (11.5-14.5)
[2018-10-16 06:25] LABS: BUN/Creatinine Ratio 24 (6-26); Blood Urea Nitrogen 15 mg/dL (8-23); Calcium 9.4 mg/dL (8.6-10.3); Carbon Dioxide 25 mEq/L (23-29); Chloride 106 mEq/L (98-107); Glucose 126 mg/dL (70-105); Osmolality,Calculated 292 (280-300); Potassium 3.8 mEq/L (3.5-5.1); Sodium 140 mEq/L (136-145); eGFR For Non-African Americans > 60 (> 60)
[2018-10-16 09:42] VITALS: BP 122/71
[2018-10-16] MEDS: Insulin LISPRO 300 UNITS/3 ML VIAL SQ SCH (09:42)
--- NOTE | 2018-10-16 09:43 | Discharge Summary ---
<Negrito Kearney - Last Filed: 10/16/18 09:39> - NOTES TO OUTPATIENT PROVIDER Notes to Outpatient Provider: Gastric biopsy results pending. Repeat CBC in 1 week. Continue iron supplements, PPI, and fiber supplements (Citrucel, Fibercon, Konsyl, or Metamucil). Patient also has noted right-sided ankle swelling which is relatively new. She reports being scheduled for an outpatient workup in mid October with a echocardiogram and stress test. Orders not resulted at time of discharge: Pending orders 10/13/18 16:53 Urinalysis reflex Microscopic [URIN] Stat 10/14/18 11:27 Tissue Transglutaminase Ab,IgA Routine 10/15/18 15:58 Surgical Pathology [PTH] Routine Date of Encounter: 10/16/18 Time of Encounter: 09:39 - Discharge Diagnosis (1) Iron deficiency anemia Priority: Primary Status: Acute Qualifiers: Iron deficiency anemia type: chronic blood loss Qualified Code(s): D50.0 - Iron deficiency anemia secondary to blood loss (chronic) (2) Diverticulosis large intestine w/o perforation or abscess w/o bleeding Priority: Secondary Status: Acute (3) Edema of right lower extremity Priority: Secondary Status: Acute (4) Hypertension Priority: Secondary Status: Chronic Qualifiers: Hypertension type: essential hypertension Qualified Code(s): I10 - Essential (primary) hypertension (5) Hyperlipidemia Priority: Secondary Status: Chronic Qualifiers: Hyperlipidemia type: mixed hyperlipidemia Qualified Code(s): E78.2 - Mixed hyperlipidemia (6) Hypothyroidism Priority: Secondary Status: Chronic Qualifiers: Hypothyroidism type: acquired Qualified Code(s): E03.9 - Hypothyroidism, unspecified (7) Diabetes Priority: Secondary Status: Chronic Qualifiers: Diabetes mellitus type: type 2 Diabetes mellitus local intermodal truck driver insulin use: without local intermodal truck driver use Diabetes mellitus complication status: without complication Qualified Code(s): E11.9 - Type 2 diabetes mellitus without complications (8) Hiatal hernia Priority: Secondary Status: Chronic (9) Symptomatic anemia Priority: Secondary Status: Acute Hospital course: Ms. Louis is a 63 year old female with a past medical history of hypertension, diabetes, GERD, hypothyroidism and hyperlipidemia who presents with a chief complaint of generalized fatigue since last June. She states that she starting noting these symptoms after recovering from a flulike illness. She reports symptoms have gotten progressively worse over the past few weeks noting increased dyspnea on exertion during her daily 30 minute walks. She went to see her primary care physician earlier today at which time blood work was performed, results revealing a low hemoglobin and was subsequently referred to the ER by her PCP. Patient denied melena, hematochezia, vaginal bleed, hematuria, nausea, vomiting, abdominal pain, or unintentional weight loss. Patient's HGB improved form 5.9 to 10.7 after receiving 3 units PRBCs. GI was consulted and patient had an EGD and colonoscopy with revealed diverticulosis. Gastric biopsy results are pending. Repeat CBC in 1 week. Continue iron supplem ents, PPI, and fiber supplements (Citrucel, Fibercon, Konsyl, or Metamucil). Patient also has noted right-sided ankle swelling which is relatively new. She is to have outpatient workup in mid October with a echocardiogram and stress test arranged by her PCP. Patient denied any history of heart disease or blood clots. Discharge discussed with: patient, family, nurse - Time Spent with Patient Total time spent providing and/or coordinating discharge services: - Discharge Medications Prescriptions: Ferrous Sulfate [Iron] 325 mg PO DAILY #30 tablet Psyllium Husk/Aspartame [Metamucil Fiber Singles Packet] 1 packet PO TID PRN #90 powd.pack PRN Reason: Bowel Movement Home Medications: RX: Aspirin [Adult Aspirin] 81 mg PO DAILY 10/13/18 [History] RX: Furosemide [Lasix] 20 mg PO DAILY PRN 10/13/18 [History] RX: Levothyroxine [Synthroid] 75 mcg PO DAILY 10/13/18 [History] RX: Lisinopril [Zestril] 10 mg PO DAILY 10/13/18 [History] RX: Metformin HCl [Glucophage] 1,000 mg PO BID 10/13/18 [History] RX: [place]-3/Dha/Epa/Fish Oil [[place] 3 500 Softgel] 1 cap PO DAILY 10/13/18 [History] RX: Omeprazole Magnesium [Prilosec Otc] 20 mg PO DAILY 10/13/18 [History] RX: Simvastatin [Zocor] 40 mg PO QPM 10/13/18 [History] Ferrous Sulfate [Iron] 325 mg PO DAILY #30 tablet 10/16/18 [Rx] Psyllium Husk/Aspartame [Metamucil Fiber Singles Packet] 1 packet PO TID PRN #90 powd.pack 10/16/18 [Rx] Allergies/Adverse Reactions: Allergy/AdvReac Type Severity Reaction Status Date / Time sulfamethoxazole Allergy Swelling Verified 10/13/18 16:35 [From Bactrim] of Lip/Tongue/Throat trimethoprim [From Bactrim] Allergy Swelling Verified 10/13/18 16:35 of Lip/Tongue/Throat Date of admission: 10/13/18 19:46 Primary care physician: Natividad Harris CNP Consults: 10/13/18 21:05 Consult to Gastroenterology [CONS] Routine Consulting Provider: [facility] [place] Reason for Consult: Significant iron deficiency anemia with hemoglobin of 5.9 in the setting of 5 month history of progressive fatigue. Concern for chronic GI loss Call Completed: No Discharging clinician: Negrito Kearney Anticipated date of discharge: 10/16/18 - Constitutional Vitals: Temp Pulse Resp BP Pulse Ox 97.7 F 63 15 119/62 96 10/16/18 06:48 10/16/18 06:48 10/16/18 06:48 10/16/18 06:48 10/16/18 06:48 General appearance: Present: cooperative, A&O X 3, pleasant, no acute distress, answers questions appropriately Exam: awake - Head Head exam: Present: atraumatic, normocephalic - Eye Eye exam: Present: EOMI, conjuntiva pink, sclera anicteric - ENT ENT exam: Present: mucous membranes moist, normal oropharynx - Neck Neck exam general surgery: Present: supple, trachea midline. Absent: lymphadenopathy - Respiratory Respiratory exam: Present: CTAB. Absent: accessory muscle use, rales, rhonchi, wheezes - Cardiovascular Cardiovascular exam: Present: RRR, +S1, +S2. Absent: diastolic murmur, gallop, rubs, systolic murmur - GI/Abdominal GI/Abdominal exam: Present: normal bowel sounds, soft, no peritoneal signs. Absent: distended, tenderness - Extremities Exam Extremities exam: Present: warm, radial pulses palpable and symmetrical. Absent: calf tenderness, cyanotic, pedal edema - Back Exam Back exam: Present: normal inspection. Absent: paraspinal tenderness, tenderness - Neurological Exam Neurological exam: Present: CN II-XII intact, oriented X3, no focal deficits. Absent: facial droop, speech deficit - Psychiatric Psychiatric exam: Present: normal affect, normal mood - Skin Skin exam: Present: dry, intact, normal color, warm - Patient Status Disposition: Home, Self-Care Condition: Good Functional capacity at discharge: independent ambulation Overall status at discharge: patient is back to baseline - Discharge Instructions Follow Up With: Natividad Harris CNP [Primary Care Provider] - 10/22/18 1:00 pm Pankaj Macias MD [Partnered Physician] - - Diet and Activity Activity: increase activity as tolerated, resume usual activities as tolerated Diet: diabetic diet (iron rich diet with fiber supplements (Citrucel, Fibercon, Konsyl, or Metamucil)) <Angelito Bowens - Last Filed: 10/16/18 19:09> Orders not resulted at time of discharge: Pending orders 10/13/18 16:53 Urinalysis reflex Microscopic [URIN] Stat 10/15/18 15:58 Surgical Pathology [PTH] Routine Date of Encounter: 10/16/18 - Discharge Diagnosis (1) Edema of right lower extremity Status: Resolved (2) Iron deficiency anemia Status: Acute Qualifiers: Iron deficiency anemia type: chronic blood loss Qualified Code(s): D50.0 - Iron deficiency anemia secondary to blood loss (chronic) (3) Hypertension Status: Chronic Qualifiers: Hypertension type: essential hypertension Qualified Code(s): I10 - Essential (primary) hypertension (4) Hyperlipidemia Status: Chronic Qualifiers: Hyperlipidemia type: mixed hyperlipidemia Qualified Code(s): E78.2 - Mixed hyperlipidemia (5) Hypothyroidism Status: Chronic Qualifiers: Hypothyroidism type: acquired Qualified Code(s): E03.9 - Hypothyroidism, unspecified (6) Diabetes Status: Chronic Qualifiers: Diabetes mellitus type: type 2 Diabetes mellitus local intermodal truck driver insulin use: without local intermodal truck driver use Diabetes mellitus complication status: without complication Qualified Code(s): E11.9 - Type 2 diabetes mellitus without complications (7) Diverticulosis large intestine w/o perforation or abscess w/o bleeding Status: Acute (8) Hiatal hernia Status: Chronic (9) Symptomatic anemia Status: Acute Hospital course: Ms. Louis is a 63 year old female - Time Spent with Patient Total time spent providing and/or coordinating discharge services: Date of admission: 10/13/18 19:46 Primary care physician: Natividad Harris CNP Consults: 10/13/18 21:05 Consult to Gastroenterology [CONS] Routine Consulting Provider: Escobar Price Reason for Consult: Significant iron deficiency anemia with hemoglobin of 5.9 in the setting of 5 month history of progressive fatigue. Concern for chronic GI loss Call Completed: No - Constitutional Vitals: Temp Pulse Resp BP Pulse Ox 97.7 F 71 15 122/71 96 10/16/18 06:48 10/16/18 09:41 10/16/18 06:48 10/16/18 09:41 10/16/18 06:48 - Attending Attestation I examined this patient and my medical decision-making was reviewed with the Resident Physician on 10/16/18. I agree with the documented findings, disposition and treatment plan as described except to the extent set forth below. Ms Louis has been admitted for acute anemia. GI work up negative thus far and found to be iron deficient. She has had stable H/H and is ready for discharge home Exam Alert Comfortable Mucus membranes dry Heart reg No wheeze Plan D/C home today.
[2018-10-16 11:31] LABS: Tissue Transglutaminase IgA 0 U/mL (0-3)
== END 2018-10-16 10:25 | disposition home or self-care (01) | DRG 392 ==
LOC: 3ANU 16:26 → EMEROOARM 16:26 → 3ANU 19:38 → SUATTDRO 19:46
PROVIDERS: ADMIT Internal Medicine; ATTEND Internal Medicine
PROC: ENDOEBX (2018-10-15 13:00)